=== PATIENT | male | born 1945 | race Hispanic/Latino ===

== ENCOUNTER 2018-08-23 08:10 | Observation (INO) | payer OTHER ==
[~2018-08-23] VITALS: Ht 157.5 cm; Wt 61.9 kg
[~2018-08-23 08:10] MED LIST: ASPI-555 PO; FISH1CAP27 PO; FISH1CAP63 PO; METF-444 PO; MULT-1259 PO; PRAV40TA3 PO
[2018-08-23 08:36] LABS: BASOPHILS % (AUTO) 0.6 % (0.0-5.0); EOSINOPHILS % (AUTO) 0.1 % (0.0-8.0); HEMATOCRIT 26.8 % (42-54); LYMPHOCYTES % (AUTO) 35.3 % (21.0-51.0); MEAN CORPUSCULAR HEMOGLOBIN 30.7 pg (27.0-33.0); MEAN CORPUSCULAR HGB CONC 33.7 g/dL (32.0-36.0); MEAN CORPUSCULAR VOLUME 91.3 fL (79-99); MONOCYTES % (AUTO) 18.3 % (3.0-13.0); NEUTROPHILS % (AUTO) 45.7 % (40.0-77.0); NUCLEATED RED BLOOD CELLS 0.1 % (0.0-0.19); PLATELET COUNT (AUTO) 62 K/uL (130-400); RED BLOOD CELL COUNT(AUTO) 2.94 MIL/uL (4.50-6.20); RED CELL DISTRIBUTION WIDTH 16.6 % (11.0-15.5); WHITE BLOOD COUNT (AUTO) 3.6 K/uL (4.8-10.8)
[2018-08-23 08:43] LABS: CREATININE 1.5 mg/dL (0.5-1.5); POTASSIUM 4.5 mmol/L (3.5-5.1)
[2018-08-23 08:49] LABS: ALBUMIN 2.7 g/dL (3.5-5.0); BILIRUBIN,TOTAL 0.5 mg/dL (0.2-1.0); TOTAL PROTEIN, SERUM 8.1 g/dL (6.0-8.3)
[2018-08-23] MEDS ORDERED: ONDANSETRON HCL 4 MG/2 ML VIAL ONE (10:18)
[2018-08-23] MEDS ORDERED: MORPHINE SULFATE 4 MG/1ML SYG ONE (10:19)
[2018-08-23 10:30] LABS: RAPID GROUP A STREP NEGATIVE (NEGATIVE)
[2018-08-23] MEDS ORDERED: SODIUM CHLORIDE 0.9% 500ML 500 ML IV ONE (11:37)
[2018-08-23] MEDS ORDERED: GLUCAGON 1MG KIT 1 MG ML IM PRN (12:30)
[2018-08-23] MEDS ORDERED: DEXTROSE 50%-WATER 50 ML DISP.SYRIN IV PRN (12:30)
[2018-08-23 16:45] VITALS: BP 176/72
[2018-08-23 19:20] VITALS: BP 149/62
[2018-08-23] MEDS: DEXTROSE 5 %-0.45 % NACL 1,000 ML IV SCH ×2 (19:30→20:30)
[2018-08-23] MEDS ORDERED: LISI2.5T2 PO (19:34)
[2018-08-23] MEDS ORDERED: ONDA4TAB10 PO (19:34)
[2018-08-23] MEDS ORDERED: METF500S7 PO (19:34)
[2018-08-23] MEDS: INSULIN R PO SS1 SQ SCH ×2 (20:28→21:00)
[2018-08-23 23:20] VITALS: BP 146/68
[2018-08-24] MEDS: DEXTROSE 5 %-0.45 % NACL 1,000 ML IV SCH (03:41)
[2018-08-24 04:00] VITALS: BP 135/57
[2018-08-24 05:13] LABS: BASOPHILS % (AUTO) 0.3 % (0.0-5.0); EOSINOPHILS % (AUTO) 0.2 % (0.0-8.0); HEMATOCRIT 22.7 % (42-54); LYMPHOCYTES % (AUTO) 40.5 % (21.0-51.0); MEAN CORPUSCULAR HEMOGLOBIN 29.9 pg (27.0-33.0); MEAN CORPUSCULAR VOLUME 90.5 fL (79-99); MONOCYTES % (AUTO) 18.4 % (3.0-13.0); NEUTROPHILS % (AUTO) 40.6 % (40.0-77.0); NUCLEATED RED BLOOD CELLS 0.3 % (0.0-0.19); PLATELET COUNT (AUTO) 44 K/uL (130-400); RED CELL DISTRIBUTION WIDTH 16.6 % (11.0-15.5)
[2018-08-24 05:27] LABS: ALBUMIN 2.2 g/dL (3.5-5.0); BILIRUBIN,TOTAL 0.4 mg/dL (0.2-1.0); CREATININE 1.5 mg/dL (0.5-1.5); POTASSIUM 5.4 mmol/L (3.5-5.1); TOTAL PROTEIN, SERUM 6.8 g/dL (6.0-8.3)
[2018-08-24] MEDS: INSULIN R PO SS1 SQ SCH ×4 (06:30→21:00)
[2018-08-24 08:00] VITALS: BP 136/64
[2018-08-24 10:16] LABS: HEMATOCRIT 21.9 % (42-54); MEAN CORPUSCULAR HEMOGLOBIN 29.9 pg (27.0-33.0); MEAN CORPUSCULAR HGB CONC 32.8 g/dL (32.0-36.0); MEAN CORPUSCULAR VOLUME 91.1 fL (79-99); NUCLEATED RED BLOOD CELLS 0.1 % (0.0-0.19); PLATELET COUNT (AUTO) 40 K/uL (130-400); RED CELL DISTRIBUTION WIDTH 16.7 % (11.0-15.5); WHITE BLOOD COUNT (AUTO) 2.5 K/uL (4.8-10.8)
[2018-08-24] MEDS: FAMOTIDINE/PF 20 MG/2 ML VIAL IV SCH (11:04)
[2018-08-24 11:11] LABS: LYMPHOCYTES % (MANUAL) 42 % (22-44); MAN.DIFF COMMENT-IMPRESSION MANUAL DIFFERENTIAL; MONOCYTES % (MANUAL) 17 % (2-9); SEGMENTED NEUTROPHILS % 41 % (40-70)
[2018-08-24 12:00] VITALS: BP 145/67
[2018-08-24 16:00] VITALS: BP 153/65
[2018-08-24] MEDS ORDERED: GUAIFENESIN-DM 200/20 MG 10 ML PO PRN (18:00)
[2018-08-24 19:28] VITALS: BP 162/71
[2018-08-24] MEDS: ONDANSETRON ODT 4 MG TAB PO SCH (19:30)
[2018-08-24] MEDS ORDERED: ATORVASTATIN CALCIUM 10 MG TABLET PO SCH (21:00)
[2018-08-24] MEDS: FISH OIL 1000 MG/CAP PO SCH (21:22)
[2018-08-25 00:18] VITALS: BP 145/71
[2018-08-25] MEDS: ONDANSETRON ODT 4 MG TAB PO SCH ×4 (03:30→08:58)
[2018-08-25 04:24] LABS: HEMATOCRIT 22.3 % (42-54); MEAN CORPUSCULAR HEMOGLOBIN 30.5 pg (27.0-33.0); MEAN CORPUSCULAR HGB CONC 33.7 g/dL (32.0-36.0); MEAN CORPUSCULAR VOLUME 90.4 fL (79-99); NUCLEATED RED BLOOD CELLS 0.1 % (0.0-0.19); PLATELET COUNT (AUTO) 40 K/uL (130-400); RED BLOOD CELL COUNT(AUTO) 2.46 MIL/uL (4.50-6.20); RED CELL DISTRIBUTION WIDTH 16.6 % (11.0-15.5)
[2018-08-25 04:30] VITALS: BP 146/67
[2018-08-25 04:37] LABS: CREATININE 1.3 mg/dL (0.5-1.5); POTASSIUM 4.3 mmol/L (3.5-5.1)
[2018-08-25] MEDS: INSULIN R PO SS1 SQ SCH ×2 (06:21→11:30)
[2018-08-25] MEDS: FISH OIL 1000 MG/CAP PO SCH (07:40)
[2018-08-25 08:00] VITALS: BP 153/67
[2018-08-25] MEDS ORDERED: METFORMIN HCL 500 MG TABLET PO SCH (08:00)
[2018-08-25] MEDS: FAMOTIDINE/PF 20 MG/2 ML VIAL IV SCH (08:59)
[2018-08-25] MEDS ORDERED: FISH OIL 1000 MG/CAP PO SCH (09:00)
[2018-08-25] MEDS ORDERED: ASPIRIN 81MG TAB.CHEW PO SCH (09:00)
[2018-08-25] MEDS ORDERED: LISINOPRIL 2.5 MG TABLET PO SCH (09:00)
[2018-08-25] MEDS ORDERED: MULTIVITAMIN TABLET PO SCH (09:00)
[2018-08-25] MEDS ORDERED: AZITHROMYCIN 250 MG TABLET PO SCH ×2 (09:30→10:00)
[2018-08-25 12:00] VITALS: BP 136/56
[2018-08-25] MEDS ORDERED: IPRATROPIUM/ALBUTEROL SULFATE 3 ML SOLUTION IH SCH (12:00)
[2018-08-26] MEDS ORDERED: AZITHROMYCIN 250 MG TABLET PO SCH (07:30)
[2018-08-28] MEDS ORDERED: OMEG-112 PO (00:26)
[2018-08-28] MEDS ORDERED: LEVO500T89 PO (00:26)
[2018-08-28] MEDS ORDERED: NITR0.4T50 SL (00:26)
[2018-08-28] MEDS ORDERED: CODEINE (00:26)
[2018-08-28] MEDS ORDERED: PANT40TA25 PO (00:26)
[2018-08-28] MEDS ORDERED: MIRT15TA6 PO (00:26)
[2018-08-28] MEDS ORDERED: IPRA0.2S54 IH (00:26)
[2018-08-28] MEDS ORDERED: GUAI120L62 PO (08:59)
== END 2018-08-25 13:15 | disposition home or self-care (01) ==
LOC: EDH 08:10 → EDHIP 12:15 → 4CH 16:36
PROVIDERS: ADMIT Internal Medicine; ATTEND Internal Medicine
DX: E86.0 Dehydration (principal); N17.9 Acute kidney failure, unspecified; R13.13 Dysphagia, pharyngeal phase; I12.9 Hypertensive chronic kidney disease with stage 1 through stage 4 chronic kidney disease, or unspecified chronic kidney disease; N18.9 Chronic kidney disease, unspecified; D64.9 Anemia, unspecified; I25.10 Atherosclerotic heart disease of native coronary artery without angina pectoris; E11.22 Type 2 diabetes mellitus with diabetic chronic kidney disease; E78.5 Hyperlipidemia, unspecified; I48.91 Unspecified atrial fibrillation; Z79.01 Long term (current) use of anticoagulants; Z86.79 Personal history of other diseases of the circulatory system; Z87.891 Personal history of nicotine dependence; Z95.1 Presence of aortocoronary bypass graft
CPT/HCPCS: G8996; G8997; G8998; 36415; 74230; 76770; 80048; 80053; 82270; 82550; 82948; 83880; 84484; 85025; 85027; 85378; 87804; 87880; 92610; 92611; 93005; 93970; 94640; 94664; 96361; 96374; 96376; G0378; J2270; J2405; J3490; J7040; J7042

== ENCOUNTER 2019-01-20 16:08 | Observation (INO) | payer OTHER ==
[~2019-01-20] VITALS: Ht 172.7 cm; Wt 53.9 kg
[~2019-01-20 16:08] MED LIST changes: -ASPI-555 PO; -FISH1CAP27 PO; -FISH1CAP63 PO; +GUAI120L62 PO; +IPRA0.2S54 IH; +LEVO500T89 PO; +LISI2.5T2 PO; -METF-444 PO; +METF500S7 PO; +MIRT15TA6 PO; +NITR0.4T50 SL; +OMEG-112 PO; +PANT40TA25 PO
[2019-01-20] MEDS ORDERED: CALCIUM GLUCONATE 1 GM/10 ML VIAL IV ONE (16:22)
[2019-01-20 16:33] LABS: BASOPHILS % (AUTO) 0.3 % (0.0-5.0); HEMATOCRIT 22.4 % (42-54); LYMPHOCYTES % (AUTO) 31.4 % (21.0-51.0); MEAN CORPUSCULAR HEMOGLOBIN 31.9 pg (27.0-33.0); MEAN CORPUSCULAR HGB CONC 32.9 g/dL (32.0-36.0); MEAN CORPUSCULAR VOLUME 96.8 fL (79-99); MONOCYTES % (AUTO) 11.1 % (3.0-13.0); NEUTROPHILS % (AUTO) 55.2 % (40.0-77.0); PLATELET COUNT (AUTO) 116 K/uL (130-400); RED BLOOD CELL COUNT(AUTO) 2.31 MIL/uL (4.50-6.20); RED CELL DISTRIBUTION WIDTH 14.1 % (11.0-15.5); WHITE BLOOD COUNT (AUTO) 4.5 K/uL (4.8-10.8)
[2019-01-20] MEDS ORDERED: ASPIRIN 325 MG TABLET ONE (16:36)
[2019-01-20 16:47] LABS: INR 1.06 (0.85-1.15); PARTIAL THROMBOPLASTIN TIME 29.7 SEC (26.3-35.5); PROTHROMBIN TIME 11.1 SEC (9.6-11.6)
[2019-01-20 16:52] LABS: ALBUMIN 3.9 g/dL (3.5-5.0); BILIRUBIN,TOTAL 0.2 mg/dL (0.2-1.0); CREATININE 3.4 mg/dL (0.5-1.5); POTASSIUM 5.7 mmol/L (3.5-5.1); TOTAL PROTEIN, SERUM 7.7 g/dL (6.0-8.3)
[2019-01-20] MEDS ORDERED: DEXTROSE 50%-WATER 50 ML DISP.SYRIN IV ONE (17:26)
[2019-01-20] MEDS ORDERED: INSULIN HUMULIN R 100 UNIT/ML 3ML ONE (17:27)
[2019-01-20] MEDS ORDERED: SODIUM POLYSTYRENE SULFONATE 15 GM/60 ML ML ONE ×2 (18:15→23:21)
[2019-01-20] MEDS ORDERED: 1/2 NORMAL SALINE 1,000 ML IV ONE (18:16)
[2019-01-20] MEDS ORDERED: SODIUM POLYSTYRENE SULFONATE 15 GM/60 ML ML PO NR (18:45)
[2019-01-20] MEDS: 1/2 NORMAL SALINE 1,000 ML IV SCH (18:45)
[2019-01-21] MEDS ORDERED: LACTULOSE 20 GM/30 ML UDCUP ONE (01:47)
[2019-01-21] MEDS ORDERED: 1/2 NORMAL SALINE 1,000 ML IV ONE (03:08)
[2019-01-21] MEDS: 1/2 NORMAL SALINE 1,000 ML IV SCH (04:45)
[2019-01-21 05:46] LABS: BASOPHILS % (AUTO) 0.5 % (0.0-5.0); CREATININE 3.5 mg/dL (0.5-1.5); LYMPHOCYTES % (AUTO) 33.2 % (21.0-51.0); MEAN CORPUSCULAR HEMOGLOBIN 33.2 pg (27.0-33.0); MEAN CORPUSCULAR HGB CONC 34.3 g/dL (32.0-36.0); MEAN CORPUSCULAR VOLUME 96.7 fL (79-99); MONOCYTES % (AUTO) 12.2 % (3.0-13.0); NEUTROPHILS % (AUTO) 51.1 % (40.0-77.0); PLATELET COUNT (AUTO) 89 K/uL (130-400); RED BLOOD CELL COUNT(AUTO) 1.84 MIL/uL (4.50-6.20); RED CELL DISTRIBUTION WIDTH 13.8 % (11.0-15.5); WHITE BLOOD COUNT (AUTO) 2.9 K/uL (4.8-10.8)
[2019-01-21 05:49] LABS: HEMATOCRIT 17.8 % (42-54)
[2019-01-21 05:50] LABS: ALBUMIN 3.3 g/dL (3.5-5.0); BILIRUBIN,TOTAL 0.3 mg/dL (0.2-1.0); TOTAL PROTEIN, SERUM 6.6 g/dL (6.0-8.3)
[2019-01-21 06:16] LABS: EOSINOPHILS % (MANUAL) 5 % (1-6); LYMPHOCYTES % (MANUAL) 38 % (22-44); MAN.DIFF COMMENT-IMPRESSION MANUAL DIFFERENTIAL; MONOCYTES % (MANUAL) 10 % (2-9); SEGMENTED NEUTROPHILS % 47 % (40-70)
[2019-01-21 06:18] LABS: PLATELET MORPHOLOGY COMMENT MARKED DECREASE
[2019-01-21 11:55] LABS: APPEARANCE,URINE Clear (CLEAR); BILIRUBIN,URINE Negative (NEGATIVE); COLOR,URINE Yellow (YELLOW); GLUCOSE, URINE (UA) Negative (NEGATIVE); KETONES,URINE Negative (NEGATIVE); LEUKOCYTE ESTERASE ,URINE Negative (NEGATIVE); NITRATE,URINE Negative (NEGATIVE); OCCULT BLOOD,URINE Trace (NEGATIVE); PROTEIN,URINE Negative (NEGATIVE); UROBILINOGEN,URINE 0.2 mg/dL (0.2-1.0)
[2019-01-21 11:58] LABS: CREATININE,URINE RANDOM 49 mg/dL (30-135); PROTEIN,URINE RANDOM 19.4 mg/dL (0-11.9)
[2019-01-21 12:19] LABS: BACTERIA,URINE Rare /HPF (None Seen); RBC,URINE 0-1 /HPF (0-1); SQUAMOUS EPITHELIAL CELL,UR Rare /HPF (0-2); WBC,URINE 0-1 /HPF (0-1)
[2019-01-21] MEDS ORDERED: SODIUM CHLORIDE 0.9% 500ML 500 ML IV ONE (14:36)
[2019-01-21 15:47] VITALS: BP 143/59
[2019-01-21] MEDS ORDERED: RANI-643 PO (17:23)
[2019-01-21] MEDS ORDERED: OLME5TAB PO (17:23)
[2019-01-21 19:16] VITALS: BP 134/59
[2019-01-21 23:49] VITALS: BP 142/67
[2019-01-22 03:32] VITALS: BP 142/65
[2019-01-22 04:05] LABS: HEMATOCRIT 24.1 % (42-54); MEAN CORPUSCULAR HEMOGLOBIN 31.6 pg (27.0-33.0); MEAN CORPUSCULAR VOLUME 93.1 fL (79-99); PLATELET COUNT (AUTO) 106 K/uL (130-400); RED BLOOD CELL COUNT(AUTO) 2.58 MIL/uL (4.50-6.20); RED CELL DISTRIBUTION WIDTH 15.7 % (11.0-15.5); WHITE BLOOD COUNT (AUTO) 5.2 K/uL (4.8-10.8)
[2019-01-22 04:13] LABS: % IRON SATURATION 88.6 % (30-44); EOSINOPHILS % (MANUAL) 8 % (1-6); LYMPHOCYTES % (MANUAL) 20 % (22-44); MAN.DIFF COMMENT-IMPRESSION MANUAL DIFFERENTIAL; MONOCYTES % (MANUAL) 14 % (2-9); PLATELET MORPHOLOGY COMMENT DECREASED; SEGMENTED NEUTROPHILS % 58 % (40-70)
[2019-01-22 04:15] LABS: ALBUMIN 3.2 g/dL (3.5-5.0); BILIRUBIN,TOTAL 0.6 mg/dL (0.2-1.0); PHOSPHORUS 4.5 mg/dL (2.5-4.9); POTASSIUM 4.8 mmol/L (3.5-5.1); TOTAL PROTEIN, SERUM 6.5 g/dL (6.0-8.3)
[2019-01-22 07:00] VITALS: BP_SYST 139; BP_SYST 144; BP_DIAS 70; BP_DIAS 71
--- NOTE | 2019-01-22 07:50 | NUR ---
ASSESSMENT ENCOUNTERED PT A&OX3, AMBULATING IN ROOM, GAIT STEADY AND STRONG WITH STAND BY ASSIST, DOES NOT APPEAR TO BE IN ANY DISTRESS NOR ANY NEURO DEFICITS PRESENT. PT DENIES PAIN, SOB, NAUSEA. CALL LIGHT WITHIN REACH, FAMILY AT BEDSIDE.
[2019-01-22 11:00] VITALS: BP 132/65
[2019-01-22] MEDS ORDERED: SUCR1TAB2 PO (11:23)
[2019-01-22] MEDS ORDERED: LACT10SO9 PO (11:23)
[2019-01-22] MEDS ORDERED: NITROGLYCERIN 0.4 MG SL TAB SL PRN (11:45)
[2019-01-22] MEDS ORDERED: LACTULOSE 20 GM/30 ML UDCUP ONE (11:54)
--- NOTE | 2019-01-22 13:00 | NUR ---
DISCHARGE INSTRUCTIONS GIVEN, PIV REMOVED AND INTACT, DISCHARGED HOME TO FAMILY VEHICLE VIA WHEELCHAIR.
[2019-01-22] MEDS ORDERED: IPRATROPIUM 0.5 MG/2.5 ML INH IH SCH (14:00)
[2019-01-22] MEDS ORDERED: LACTULOSE 20 GM/30 ML UDCUP PO SCH (17:00)
[2019-01-22] MEDS ORDERED: RANITIDINE HCL 15 MG/1 ML PO PRN (21:00)
[2019-01-22] MEDS ORDERED: ATORVASTATIN CALCIUM 10 MG TABLET PO SCH (21:00)
[2019-01-22] MEDS ORDERED: SUCRALFATE 1 GM TABLET PO SCH (21:00)
[2019-01-23] MEDS ORDERED: FISH OIL 1000 MG/CAP PO SCH (09:00)
[2019-01-23] MEDS ORDERED: MULTIVITAMINS/MINERALS/IRO TAB PO SCH (09:00)
[2019-01-23] MEDS ORDERED: LOSARTAN 50 MG TABLET PO SCH (09:00)
[2019-01-23] MEDS ORDERED: PANTOPRAZOLE SODIUM 40 MG TABLET.DR PO SCH (09:00)
== END 2019-01-22 17:50 | disposition home or self-care (01) ==
LOC: EDH 16:08 → EDHIP 17:45 → 2AH 01-21 15:51
PROVIDERS: ADMIT Internal Medicine; ATTEND Internal Medicine
DX: E87.5 Hyperkalemia (principal); D63.1 Anemia in chronic kidney disease; I12.9 Hypertensive chronic kidney disease with stage 1 through stage 4 chronic kidney disease, or unspecified chronic kidney disease; N18.9 Chronic kidney disease, unspecified; N17.9 Acute kidney failure, unspecified; I48.91 Unspecified atrial fibrillation; E11.22 Type 2 diabetes mellitus with diabetic chronic kidney disease; E78.5 Hyperlipidemia, unspecified; I25.10 Atherosclerotic heart disease of native coronary artery without angina pectoris; Z79.01 Long term (current) use of anticoagulants; Z95.1 Presence of aortocoronary bypass graft; Z95.2 Presence of prosthetic heart valve; Z79.899 Other long term (current) drug therapy
CPT/HCPCS: 36415 ×3; 36430; 71045; 76770; 80053 ×3; 81001; 82550; 82570; 82948 ×3; 83540; 83550; 84100; 84132; 84156; 84165; 84484; 85025 ×3; 85610; 85730; 86850; 86900; 86901; 86922; 93005 ×2; 94640; 94664; 99284; G0378 ×48; J0610; J1815; J7040; J7070; P9016

== ENCOUNTER → 2019-04-26 | Outpatient (CLI) | payer OTHER ==
[~2019-04-26] MED LIST changes: -GUAI120L62 PO; +LACT10SO9 PO; -LEVO500T89 PO; -LISI2.5T2 PO; -METF500S7 PO; -MIRT15TA6 PO; +OLME5TAB PO; +RANI-643 PO; +SUCR1TAB2 PO
== END | disposition home or self-care (01) ==
LOC: RAH 08:44
PROVIDERS: ATTEND Internal Medicine Gastroenterology
DX: I86.8 Varicose veins of other specified sites (principal); K74.60 Unspecified cirrhosis of liver; I70.0 Atherosclerosis of aorta; Z90.49 Acquired absence of other specified parts of digestive tract
CPT/HCPCS: 76700; 93975

== ENCOUNTER 2019-11-22 10:24 | Inpatient (IN) | payer OTHER ==
[~2019-11-22] VITALS: Ht 167.6 cm; Wt 63.7 kg
[~2019-11-22 10:24] MED LIST changes: -RANI-643 PO; +RANI-655 PO
[2019-11-22 10:49] LABS: BASOPHILS % (AUTO) 0.1 % (0.0-5.0); MEAN CORPUSCULAR HEMOGLOBIN 29.1 pg (27.0-33.0); MEAN CORPUSCULAR HGB CONC 30.2 g/dL (32.0-36.0); MEAN CORPUSCULAR VOLUME 96.6 fL (79-99); MONOCYTES % (AUTO) 15.2 % (3.0-13.0); NEUTROPHILS % (AUTO) 52.8 % (40.0-77.0); PLATELET COUNT (AUTO) 91 K/uL (130-400); RED BLOOD CELL COUNT(AUTO) 2.06 MIL/uL (4.50-6.20); RED CELL DISTRIBUTION WIDTH 17.6 % (11.0-15.5); WHITE BLOOD COUNT (AUTO) 8.6 K/uL (4.8-10.8)
[2019-11-22] MEDS ORDERED: ACETAMINOPHEN EXTRA STRENGTH 500 MG TABLET ONE (10:57)
[2019-11-22] MEDS ORDERED: ZOSYN 3.375GM+NS 50ML 50 ML IV ONE (10:57)
[2019-11-22] MEDS ORDERED: SODIUM CHLORIDE 0.9% 1000ML 2,000 ML IV ONE (10:58)
[2019-11-22 11:00] LABS: HEMATOCRIT 19.9 % (42-54)
[2019-11-22 11:08] LABS: ABG HCO3 16.1 mmol/L (21.0-28.0); ABG OXYGEN SATURATION 97.9 % (95.0-99.0); ABG PCO2 27 mmHg (35-48)
[2019-11-22 11:36] LABS: INR 1.3 (0.85-1.15); PARTIAL THROMBOPLASTIN TIME 32.9 SEC (26.3-35.5); PROTHROMBIN TIME 13.9 SEC (9.6-11.6)
[2019-11-22] MEDS ORDERED: OSELTAMIVIR PHOSPHATE 75 MG CAP ONE (11:55)
[2019-11-22 12:29] LABS: ALANINE AMINOTRANSFERASE 23 U/L (12-78); ASPARTATE AMINOTRANSFERASE 24 U/L (10-37); BILIRUBIN,TOTAL 0.7 mg/dL (0.2-1.0); CARBON DIOXIDE 18 mmol/L (21-32); CHLORIDE 105 mmol/L (101-111); CREATINE KINASE, TOTAL 18 U/L (21-232); CREATININE 3.7 mg/dL (0.5-1.5); GLOMERULAR FILTR. RATE CALC 17 mL/min (>60); GLUCOSE,RANDOM 179 mg/dL (70-105); MYOGLOBIN 74 ng/mL (10-92); SODIUM SERUM 135 mmol/L (136-145); TOTAL PROTEIN, SERUM 9.3 g/dL (6.0-8.3); TROPONIN I < 0.04 ng/mL (0.00-0.06); UREA NITROGEN, BLOOD 61 mg/dL (7-18)
[2019-11-22 12:31] LABS: POTASSIUM 6.3 mmol/L (3.5-5.1)
[2019-11-22] MEDS ORDERED: CALCIUM GLUCONATE 1 GM/10 ML VIAL IV ONE (13:58)
[2019-11-22] MEDS ORDERED: SODIUM CHLORIDE 0.9% 100 ML IV ONE (13:58)
[2019-11-22] MEDS ORDERED: METHYLPREDNISOLONE SOD SUCC 125MG/2ML VIAL IVP SCH (15:30)
[2019-11-22] MEDS ORDERED: COMPOUND PO MISCELLANEOUS 1 EACH MISC MISC PRN (15:30)
[2019-11-22] MEDS ORDERED: SODIUM CHLORIDE 0.9% 10 ML VIAL IVP PRN (15:45)
[2019-11-22 17:42] VITALS: BP 149/70
[2019-11-22] MEDS ORDERED: IPRATROPIUM/ALBUTEROL SULFATE 3 ML SOLUTION IH ONE (18:34)
[2019-11-22] MEDS ORDERED: FURO20TA4 PO (18:42)
[2019-11-22] MEDS ORDERED: SODI454P10 PO (18:42)
[2019-11-22] MEDS ORDERED: MONT10TA26 PO (18:42)
[2019-11-22] MEDS ORDERED: LACT10SO PO (18:42)
[2019-11-22] MEDS ORDERED: TELM80TA10 PO (18:42)
[2019-11-22] MEDS ORDERED: ISOS30TA6 PO (18:42)
[2019-11-22] MEDS ORDERED: AEC81 PO (18:42)
[2019-11-22 19:45] LABS: BILIRUBIN,URINE Negative (NEGATIVE); COLOR,URINE Yellow (YELLOW); GLUCOSE, URINE (UA) Negative (NEGATIVE); KETONES,URINE Negative (NEGATIVE); LEUKOCYTE ESTERASE ,URINE Negative (NEGATIVE); NITRATE,URINE Negative (NEGATIVE); OCCULT BLOOD,URINE Moderate (NEGATIVE); PROTEIN,URINE POS 2+ mg/dL (NEGATIVE); UROBILINOGEN,URINE 0.2 mg/dL (0.2-1.0)
[2019-11-22 19:46] LABS: APPEARANCE,URINE SLIGHTLY CLOUDY (CLEAR)
[2019-11-22 19:52] LABS: BACTERIA,URINE Few /HPF (None Seen); COARSE GRANULAR CASTS,URINE 0-2 /LPF (None Seen); SQUAMOUS EPITHELIAL CELL,UR Few /HPF (0-2); WBC,URINE 0-1 /HPF (0-1)
[2019-11-22 19:54] LABS: AMORPHOUS SEDIMENT,UR Few /LPF (None Seen)
[2019-11-22 20:10] VITALS: BP 147/58
[2019-11-22 23:31] VITALS: BP 144/73
[2019-11-23 03:42] VITALS: BP 154/65
[2019-11-23 05:40] LABS: MEAN CORPUSCULAR HEMOGLOBIN 28.4 pg (27.0-33.0); MEAN CORPUSCULAR VOLUME 91.7 fL (79-99); PLATELET COUNT (AUTO) 55 K/uL (130-400); RED BLOOD CELL COUNT(AUTO) 2.18 MIL/uL (4.50-6.20)
[2019-11-23 05:58] LABS: ALBUMIN 2.4 g/dL (3.5-5.0); BILIRUBIN,TOTAL 0.5 mg/dL (0.2-1.0); CREATININE 3.3 mg/dL (0.5-1.5); POTASSIUM 5.9 mmol/L (3.5-5.1); TOTAL PROTEIN, SERUM 7.8 g/dL (6.0-8.3)
[2019-11-23] MEDS: IPRATROPIUM/ALBUTEROL SULFATE 3 ML SOLUTION IH PRN ×4 (06:19→19:09)
[2019-11-23 07:30] VITALS: BP 142/69
[2019-11-23] MEDS: CEFTRIAXONE SODIUM 1 GM IVP SCH (08:34)
[2019-11-23] MEDS ORDERED: OSELTAMIVIR PHOSPHATE 300 MG, WATER FOR INJECTION,STERILE 10 ML, COMPOUNDING VEHICLE SF... PO SCH ×3 (09:00)
[2019-11-23 11:00] VITALS: BP 148/62
[2019-11-23] MEDS: OSELTAMIVIR PHOSPHATE 75 MG CAP PO SCH (11:33)
--- NOTE | 2019-11-23 12:58 | NUR ---
DCP CM met with pt discussed dc plans. Pt is independent prior to admission, lives at home with spouse. Pt has a cane. Denies any other equipments/services. Feels safe to go back home, still drives, spouse able to assist with transportation and nees as necessary. DC plan to home once stable. CM to cont to follow up. Addendum: 11/23/19 at 1259 by BONIFACIO MOREAU LVN CM Amended: Links added.
--- NOTE | 2019-11-23 14:04 | NUR ---
[id number] patient signed IM Letter to [id number] and placed in chart under consent tab.
--- NOTE | 2019-11-23 14:43 | NUR ---
RD Notification Pt admitted for Flu B, PNA, Hx of CABG, DM, CKD. Pt tolerating current diet order at this time. Recommend to add Renal Non Dialysis diet order secondary to altered renal labs. Pt with some AMS at time of visit, as per RN. Diet held at time of visit pending U/S of abdomen. RD to follow up with nutrition education assessment. Pt with significant wt loss (>7.5% in 3mos.). Pt with good appetite at this time. RD to continue to monitor. Please notify RD as additional nutrition concerns arise. Thank you. Addendum: 11/23/19 at [address] RD Amended: Links added.
[2019-11-23 20:57] VITALS: BP 148/70
[2019-11-24 00:38] VITALS: BP 147/68
[2019-11-24 04:00] VITALS: BP 142/79
[2019-11-24 06:11] LABS: LYMPHOCYTES % (AUTO) 23.2 % (21.0-51.0); MEAN CORPUSCULAR HEMOGLOBIN 28.4 pg (27.0-33.0); MEAN CORPUSCULAR HGB CONC 31.4 g/dL (32.0-36.0); MEAN CORPUSCULAR VOLUME 90.5 fL (79-99); MONOCYTES % (AUTO) 12.2 % (3.0-13.0); PLATELET COUNT (AUTO) 79 K/uL (130-400); RED BLOOD CELL COUNT(AUTO) 2.43 MIL/uL (4.50-6.20); RED CELL DISTRIBUTION WIDTH 19.9 % (11.0-15.5); WHITE BLOOD COUNT (AUTO) 7.4 K/uL (4.8-10.8)
[2019-11-24 06:29] LABS: ALBUMIN 2.6 g/dL (3.5-5.0); BILIRUBIN,TOTAL 0.5 mg/dL (0.2-1.0); CREATININE 3.3 mg/dL (0.5-1.5); POTASSIUM 5.9 mmol/L (3.5-5.1); TOTAL PROTEIN, SERUM 8.2 g/dL (6.0-8.3)
[2019-11-24] MEDS: IPRATROPIUM/ALBUTEROL SULFATE 3 ML SOLUTION IH PRN ×3 (07:01→18:48)
[2019-11-24 07:30] VITALS: BP 149/78
[2019-11-24] MEDS: CEFTRIAXONE SODIUM 1 GM IVP SCH (08:16)
[2019-11-24 11:00] VITALS: BP 136/59
[2019-11-24] MEDS: OSELTAMIVIR PHOSPHATE 75 MG CAP PO SCH (11:35)
--- NOTE | 2019-11-24 13:53 | NUR ---
DR. STEPHANY HAMMOND IN TO SEE PATIENT. NEW ORDERS RECEIVED AND CARRIED OUT.
[2019-11-24 16:00] VITALS: BP 149/76
[2019-11-24] MEDS ORDERED: SODIUM CHLORIDE 0.9% 250 ML IV ONE (16:41)
[2019-11-24] MEDS ORDERED: CLONIDINE HCL 0.2 MG TABLET PO PRN (19:45)
[2019-11-24] MEDS ORDERED: SODIUM POLYSTYRENE SULFONATE 15 GM/60 ML ML PO SCH (19:45)
[2019-11-24 20:00] VITALS: BP 146/73
--- NOTE | 2019-11-24 20:00 | NUR ---
PHYSICAL ADULT ASSESSMENT DONE AT 2000
[2019-11-24] MEDS: FUROSEMIDE 10 MG/ML 4ML VIAL IV SCH (20:30)
[2019-11-24] MEDS: LACTULOSE 20 GM/30 ML UDCUP PO SCH (20:30)
[2019-11-24] MEDS ORDERED: ONDANSETRON HCL 4 MG/2 ML VIAL ONE (20:51)
[2019-11-24] MEDS ORDERED: ONDANSETRON HCL 4 MG/2 ML VIAL IVP PRN (21:00)
[2019-11-25] VITALS (7 sets, daily range): BP systolic 122–154; BP diastolic 53–79
[2019-11-25 04:51] LABS: LYMPHOCYTES % (AUTO) 26.8 % (21.0-51.0); MEAN CORPUSCULAR HEMOGLOBIN 29.2 pg (27.0-33.0); MEAN CORPUSCULAR VOLUME 91.2 fL (79-99); MONOCYTES % (AUTO) 12.7 % (3.0-13.0); NEUTROPHILS % (AUTO) 59.4 % (40.0-77.0); PLATELET COUNT (AUTO) 75 K/uL (130-400); RED BLOOD CELL COUNT(AUTO) 2.74 MIL/uL (4.50-6.20); RED CELL DISTRIBUTION WIDTH 18.5 % (11.0-15.5); WHITE BLOOD COUNT (AUTO) 5.6 K/uL (4.8-10.8)
[2019-11-25 04:59] LABS: ALANINE AMINOTRANSFERASE 27 U/L (12-78); ALBUMIN 2.4 g/dL (3.5-5.0); ASPARTATE AMINOTRANSFERASE 32 U/L (10-37); BILIRUBIN,TOTAL 0.8 mg/dL (0.2-1.0); CARBON DIOXIDE 23 mmol/L (21-32); CHLORIDE 107 mmol/L (101-111); CREATININE 3.3 mg/dL (0.5-1.5); GLOMERULAR FILTR. RATE CALC 20 mL/min (>60); GLUCOSE,RANDOM 148 mg/dL (70-105); SODIUM SERUM 136 mmol/L (136-145); UREA NITROGEN, BLOOD 62 mg/dL (7-18)
[2019-11-25 05:33] LABS: AMMONIA < 10 umol/L (11-32)
[2019-11-25] MEDS: ISOSORBIDE MONO 30MG TAB SR PO SCH (08:02)
[2019-11-25] MEDS: FUROSEMIDE 10 MG/ML 4ML VIAL IV SCH ×2 (08:02→21:32)
[2019-11-25] MEDS: CEFTRIAXONE SODIUM 1 GM IVP SCH (08:02)
[2019-11-25] MEDS: LACTULOSE 20 GM/30 ML UDCUP PO SCH ×3 (08:09→21:31)
[2019-11-25] MEDS ORDERED: ASPIRIN 81 MG EC TAB PO SCH (09:00)
[2019-11-25] MEDS: OSELTAMIVIR PHOSPHATE 75 MG CAP PO SCH (11:37)
--- NOTE | 2019-11-25 13:00 | NUR ---
cm note discussed oxygen need with dr kam and states pt should not need home o2, will continue to ,monitor pt, on room air, he is improving, will reorder home o2 eval if needed. Thuan primary nurse aware.
[2019-11-26 04:00] VITALS: BP 122/57
[2019-11-26 08:00] VITALS: BP 134/65
[2019-11-26] MEDS: CEFTRIAXONE SODIUM 1 GM IVP SCH (08:30)
[2019-11-26] MEDS: LACTULOSE 20 GM/30 ML UDCUP PO SCH ×2 (08:31→14:48)
[2019-11-26] MEDS: ISOSORBIDE MONO 30MG TAB SR PO SCH (08:31)
[2019-11-26] MEDS: FUROSEMIDE 10 MG/ML 4ML VIAL IV SCH (08:31)
[2019-11-26 11:49] VITALS: BP 124/54
[2019-11-26] MEDS: OSELTAMIVIR PHOSPHATE 75 MG CAP PO SCH (11:56)
[2019-11-26 16:00] VITALS: BP 114/50
[2019-11-26] MEDS ORDERED: OSEL75 PO (16:21)
[2019-11-26] MEDS ORDERED: FURO40TA7 PO (16:22)
[2019-11-26] MEDS ORDERED: POTA20TA12 PO (16:23)
--- NOTE | 2019-11-26 17:00 | NUR ---
patient given discharge instructions , iv removed and site dressed, , patient dressed and daughter called as requested , report given to daughter and she is on her way to pick him up. patient denies pain at this time
--- NOTE | 2019-11-26 17:30 | NUR ---
Patient taking to [facility] via wheelchair Reviewed medication, discharge instructions and follow-up appointment with Dr Parsons patient and daughter, verbalized understand of medication Rx given , no questions or concern at this time , patient left with family for [place]
== END 2019-11-26 17:30 | disposition home or self-care (01) | DRG 194 ==
LOC: EDH 10:24 → OBSVTOIN 14:56 → EDHIP 14:56 → 4DH 16:58
PROVIDERS: ADMIT Family Medicine; ATTEND Family Medicine
DX: J10.01 Influenza due to other identified influenza virus with the same other identified influenza virus pneumonia (principal); D61.818 Other pancytopenia; E11.22 Type 2 diabetes mellitus with diabetic chronic kidney disease; I25.10 Atherosclerotic heart disease of native coronary artery without angina pectoris; K74.60 Unspecified cirrhosis of liver; I48.91 Unspecified atrial fibrillation; Z95.2 Presence of prosthetic heart valve; I50.9 Heart failure, unspecified
CPT/HCPCS: 36415; 36600; 71045; 71250; 76700; 80053; 81001; 82140; 82550; 82803; 82948; 83605; 83874; 84145; 84484; 85025; 85027; 85610; 85730; 86850; 86900; 86901; 86922; 87040; 87088; 87486; 87581; 87633; 87798; 87804; 87807; 93005; 93306; 93356; 93880; 94640; 94664; 99291; G0378; J0610; J0696; J1940; J2405; J2543; J2930; J7030; P9016

== ENCOUNTER 2019-12-03 20:47 | Inpatient (IN) | payer OTHER ==
[~2019-12-03] VITALS: Ht 170.2 cm; Wt 56.4 kg
[~2019-12-03 20:47] MED LIST changes: +AEC81 PO; +FURO40TA7 PO; -IPRA0.2S54 IH; +ISOS30TA6 PO; +LACT10SO PO; -LACT10SO9 PO; +MONT10TA26 PO; -NITR0.4T50 SL; -OLME5TAB PO; +OSEL75 PO; -PANT40TA25 PO; +POTA20TA12 PO; -PRAV40TA3 PO; -RANI-655 PO; +SODI454P10 PO; -SUCR1TAB2 PO; +TELM80TA10 PO
[2019-12-03 21:29] LABS: BASOPHILS % (AUTO) 0.2 % (0.0-5.0); HEMATOCRIT 24.5 % (42-54); LYMPHOCYTES % (AUTO) 33.1 % (21.0-51.0); MEAN CORPUSCULAR HEMOGLOBIN 28.6 pg (27.0-33.0); MEAN CORPUSCULAR HGB CONC 30.2 g/dL (32.0-36.0); MEAN CORPUSCULAR VOLUME 94.6 fL (79-99); MONOCYTES % (AUTO) 15.2 % (3.0-13.0); NEUTROPHILS % (AUTO) 51.3 % (40.0-77.0); PLATELET COUNT (AUTO) 75 K/uL (130-400); RED BLOOD CELL COUNT(AUTO) 2.59 MIL/uL (4.50-6.20); RED CELL DISTRIBUTION WIDTH 17.1 % (11.0-15.5); WHITE BLOOD COUNT (AUTO) 4.5 K/uL (4.8-10.8)
[2019-12-03] MEDS ORDERED: IPRATROPIUM/ALBUTEROL SULFATE 3 ML SOLUTION IH ONE (22:01)
[2019-12-03] MEDS ORDERED: ALBUTEROL SULFATE 0.083% 2.5 MG/3 ML INH IH ONE (22:02)
[2019-12-03 22:12] LABS: INR 1.15 (0.85-1.15); PARTIAL THROMBOPLASTIN TIME 33.8 SEC (26.3-35.5); PROTHROMBIN TIME 12.4 SEC (9.6-11.6)
[2019-12-03] MEDS ORDERED: CALCIUM GLUCONATE 1 GM/10 ML VIAL IV ONE (22:12)
[2019-12-03] MEDS ORDERED: SODIUM POLYSTYRENE SULFONATE 15 GM/60 ML ML ONE (22:12)
[2019-12-03] MEDS ORDERED: SODIUM BICARB 50MEQ 50ML VIAL ONE ×2 (22:12→23:10)
[2019-12-03] MEDS ORDERED: DEXTROSE 50%-WATER 50 ML DISP.SYRIN IV ONE (22:13)
[2019-12-03] MEDS ORDERED: INSULIN HUMULIN R 100 UNIT/ML 3ML ONE (22:14)
[2019-12-03] MEDS ORDERED: SODIUM CHLORIDE 0.9% 50 ML IV ONE (22:15)
[2019-12-03 22:22] LABS: ALBUMIN 2.8 g/dL (3.5-5.0); BILIRUBIN,TOTAL 0.5 mg/dL (0.2-1.0); CREATININE 3.4 mg/dL (0.5-1.5); TOTAL PROTEIN, SERUM 9.4 g/dL (6.0-8.3)
[2019-12-03 22:26] LABS: POTASSIUM 8.7 mmol/L (3.5-5.1)
[2019-12-03] MEDS ORDERED: SODIUM CHLORIDE 0.9% 100 ML IV ONE (23:04)
[2019-12-03] MEDS ORDERED: DILTIAZEM HCL 125 MG/25 ML VIAL IV ONE (23:04)
[2019-12-03] MEDS ORDERED: FUROSEMIDE 10 MG/ML 4ML VIAL ONE ×2 (23:09→23:41)
[2019-12-04] VITALS (22 sets, daily range): BP systolic 112–167; BP diastolic 35–72
[2019-12-04 00:52] LABS: APPEARANCE,URINE Clear (CLEAR); BILIRUBIN,URINE Negative (NEGATIVE); COLOR,URINE Yellow (YELLOW); GLUCOSE, URINE (UA) Negative (NEGATIVE); KETONES,URINE Negative (NEGATIVE); LEUKOCYTE ESTERASE ,URINE Negative (NEGATIVE); NITRATE,URINE Negative (NEGATIVE); OCCULT BLOOD,URINE Moderate (NEGATIVE); PH,URINE 5.5 (5.0-8.0); PROTEIN,URINE Trace mg/dL (NEGATIVE); UROBILINOGEN,URINE 0.2 mg/dL (0.2-1.0)
[2019-12-04 01:07] LABS: BACTERIA,URINE Rare /HPF (None Seen); WBC,URINE 0-1 /HPF (0-1)
[2019-12-04] MEDS ORDERED: ALBUTEROL SULFATE 0.083% 2.5 MG/3 ML INH IH ONE ×2 (01:45→01:46)
--- NOTE | 2019-12-04 01:58 | NUR ---
Patient admitted in at 0158, Room air, on cardizem drip and NS running in left arm.
[2019-12-04] MEDS ORDERED: ONDANSETRON HCL 4 MG/2 ML VIAL IVP PRN (02:45)
[2019-12-04] MEDS ORDERED: ACETAMINOPHEN 325 MG TAB PO PRN ×2 (02:45→15:45)
[2019-12-04] MEDS: SODIUM CHLORIDE 0.9% 1000ML 1,000 ML IV SCH ×21 (03:30→23:40)
[2019-12-04] MEDS ORDERED: DILTIAZEM HCL 125 MG/25 ML 125 MG in SODIUM CHLORIDE 0.9% 100 ML IV SCH (03:30)
[2019-12-04 04:06] LABS: CREATININE 3.4 mg/dL (0.5-1.5)
[2019-12-04 04:23] LABS: POTASSIUM 8.3 mmol/L (3.5-5.1)
[2019-12-04] MEDS: SODIUM POLYSTYRENE SULFONATE 15 GM/60 ML ML PO SCH (04:30)
[2019-12-04] MEDS ORDERED: SODIUM POLYSTYRENE SULFONATE 15 GM/60 ML ML ONE (04:31)
[2019-12-04] MEDS ORDERED: DEXTROSE 50%-WATER 25 GM/50 ML VIAL IV STA (05:04)
[2019-12-04] MEDS ORDERED: CALCIUM GLUCONATE 1 GM/10 ML VIAL IV STA (05:04)
[2019-12-04] MEDS ORDERED: INSULIN HUMULIN R 100 UNIT/ML 3ML SQ STA (05:04)
[2019-12-04] MEDS ORDERED: SODIUM BICARB 50MEQ 50ML VIAL IV STA (05:04)
[2019-12-04] MEDS ORDERED: ALBUTEROL SULFATE 0.083% 2.5 MG/3 ML INH IH STA (05:09)
[2019-12-04] MEDS ORDERED: FUROSEMIDE 10 MG/ML 4ML VIAL IV STA (05:09)
[2019-12-04] MEDS: ALBUTEROL SULFATE 0.083% 2.5 MG/3 ML INH IH SCH ×2 (05:15→09:23)
[2019-12-04] MEDS ORDERED: SODIUM BICARB 50MEQ 50ML VIAL ONE (05:15)
[2019-12-04] MEDS ORDERED: CALCIUM GLUCONATE 1 GM/10 ML VIAL IV ONE (05:15)
[2019-12-04] MEDS ORDERED: DEXTROSE 50%-WATER 50 ML DISP.SYRIN IV ONE ×2 (05:16→19:38)
[2019-12-04] MEDS ORDERED: FUROSEMIDE 10 MG/ML 4ML VIAL ONE (05:17)
[2019-12-04] MEDS ORDERED: INSULIN HUMULIN R 100 UNIT/ML 3ML ONE (05:17)
[2019-12-04] MEDS ORDERED: DEXTROSE 10%-WATER 1,000 ML IV SCH (05:45)
[2019-12-04] MEDS ORDERED: INSULIN REGULAR, HUMAN 3ML 100 UNIT in SODIUM CHLORIDE 0.9% 99 ML IV PRN ×2 (05:45)
--- NOTE | 2019-12-04 06:00 | NUR ---
Monique Martinez CARDIOLOGY TECHNOLOGIST called at 0500 for elevated Potassium Lab. Hyperkalemia cocktail given for the second time to decrease level. Monique CARDIOLOGY TECHNOLOGIST ordered insulin drip and D10W to lower potassium. CARDIOLOGY TECHNOLOGIST stated a catheter needs to be placed for emergency dialysis for K+ levels.
[2019-12-04] MEDS: SODIUM POLYSTYRENE SULFONATE 15 GM/60 ML ML PO NR (06:29)
[2019-12-04] MEDS: METOCLOPRAMIDE 10 MG/2 ML VIAL IVP SCH ×3 (06:35→18:00)
--- NOTE | 2019-12-04 06:48 | NUR ---
Dr. Marco pandya, awaiting callback for possible dialysis.
--- NOTE | 2019-12-04 07:08 | NUR ---
Dr. Lara returned page and stated patient needs to get acces obtained for stat dialysis, and dialysis start chandrika
--- NOTE | 2019-12-04 07:13 | NUR ---
Reed CONW[facility] called and notified that access was needed for dialysis.
[2019-12-04] MEDS: FUROSEMIDE 10 MG/ML 4ML VIAL IV SCH ×2 (08:18→20:41)
[2019-12-04] MEDS ORDERED: INSULIN HUMULIN R 100 UNIT/ML 3ML IV SCH (09:30)
[2019-12-04] MEDS ORDERED: ALBUTEROL SULFATE 0.083% 2.5 MG/3 ML INH IH SCH (09:30)
[2019-12-04] MEDS ORDERED: DEXTROSE 50%-WATER 50 ML DISP.SYRIN IV SCH (09:30)
[2019-12-04] MEDS ORDERED: SODIUM BICARB 8.4% 50ML SYRING 150 MEQ in DEXTROSE 5%-WATER 850 ML IV SCH (09:30)
[2019-12-04] MEDS ORDERED: SODIUM POLYSTYRENE SULFONATE 15 GM/60 ML ML RC SCH (09:30)
[2019-12-04] MEDS: PANTOPRAZOLE 40 MG/VIAL IVP SCH (10:03)
[2019-12-04] MEDS ORDERED: CALCIUM GLUCONATE 1 GM/10 ML VIAL IV SCH (10:15)
[2019-12-04] MEDS ORDERED: CALCIUM GLUCONATE 1 GM in SODIUM CHLORIDE 0.9% 50 ML IV SCH (10:30)
--- NOTE | 2019-12-04 10:50 | NUR ---
DR. PAINTING HERE AND INSERTING THE TRIDALYSIS CATHETER. CHEST XRAY DONE AFTER CATHETER WAS PLACED.
[2019-12-04] MEDS ORDERED: LIDOCAINE HCL 1% 20 ML VIAL ONE (10:52)
[2019-12-04 11:31] LABS: CREATININE 3.6 mg/dL (0.5-1.5)
[2019-12-04 11:38] LABS: POTASSIUM 6.4 mmol/L (3.5-5.1)
--- NOTE | 2019-12-04 12:30 | NUR ---
DR. YAO HERE AND ORDERS NOTED AND DIALYSIS STAFF NOTIFIED OF DIALYSIS NEEDING TO BE DONE HUSSEIN.
[2019-12-04 12:58] LABS: ABG BASE EXCESS -1.9 mmol/L (-2.0-3.0); ABG HCO3 21.9 mmol/L (21.0-28.0); ABG OXYGEN SATURATION 97.7 % (95.0-99.0); ABG PCO2 35 mmHg (35-48)
--- NOTE | 2019-12-04 14:00 | NUR ---
DIALYSIS TREATMENT STARTED AND WILL MONITOR HOW SHE TOLERATES.
[2019-12-04] MEDS ORDERED: HEPARIN SODIUM 5000UNIT/ML 1ML VIAL ONE (15:04)
[2019-12-04 15:37] LABS: CHLORIDE,URINE RANDOM 139 mmol/L (110-250); CREATININE,URINE RANDOM 18 mg/dL (30-135); POTASSIUM,URINE RANDOM 16 mmol/L (25-125); SODIUM,URINE RANDOM 126 mmol/l (40-220)
[2019-12-04] MEDS ORDERED: SODIUM CHLORIDE 0.9% 1000ML 1,000 ML IV PRN (15:45)
[2019-12-04] MEDS ORDERED: 0.9% SODIUM CHLORIDE 1000 ML IV BAG IV PRN (15:45)
[2019-12-04] MEDS ORDERED: NITROGLYCERIN 0.4 MG SL TAB SL PRN (15:45)
[2019-12-04] MEDS ORDERED: LIDOCAINE HCL-MPF 1% 2ML VIAL IJ PRN (15:45)
[2019-12-04] MEDS ORDERED: HEPARIN SODIUM 5000UNIT/ML 1ML VIAL IJ PRN ×2 (15:45)
[2019-12-04 16:29] LABS: % IRON SATURATION 45.5 % (30-44)
--- NOTE | 2019-12-04 16:40 | NUR ---
INITIAL: Spoke w pts spouse Angela this afternoon to discuss dcp. Per Mrs Stover, pt lives w her. Prior to admission he was independent w ambulation and ADLs. Pt has at home a BSC, cane, rollator and standard walker if needed. Per spouse pt was still driving prior to admission. Per spouse she will be able to assist pt at dc if needed. She mentions that at this time DCP remains for home. CM to continue to follow and wait for Md recommendations. Addendum: 12/04/19 at 1644 by DOMONIQUE LE CM Amended: Links added.
[2019-12-04] MEDS ORDERED: PHARMACY COMMUNICATION MISC SCH (17:00)
[2019-12-04 17:38] LABS: CREATININE 2.2 mg/dL (0.5-1.5); POTASSIUM 4.7 mmol/L (3.5-5.1)
--- NOTE | 2019-12-04 19:00 | NUR ---
Received report patient on insulin drip.
--- NOTE | 2019-12-04 19:30 | NUR ---
Blood sugar checked and it is 58,rechecked blood sugar is 47.D50 IV 1 am was given.Patient remained alert and oriented.
[2019-12-04] MEDS ORDERED: DEXTROSE 50%-WATER 25 GM/50 ML VIAL IV PRN (20:00)
--- NOTE | 2019-12-04 20:22 | NUR ---
SHIP SURVEYOR Monique Martinez was called and notified about patient blood sugar and he is given D50 IV .Received order to stop insulin and D50 prn for Hypoglycemia.Blood sugar rechecked at this time and its 121.
[2019-12-04] MEDS: SODIUM BICARBONATE 650 MG TAB PO SCH (20:41)
[2019-12-04] MEDS ORDERED: DEXTROSE 50%-WATER 50 ML DISP.SYRIN IV PRN (20:45)
[2019-12-05] VITALS (38 sets, daily range): BP systolic 106–159; BP diastolic 52–87
[2019-12-05] MEDS: SODIUM CHLORIDE 0.9% 1000ML 1,000 ML IV SCH ×16 (00:01→12:10)
[2019-12-05] MEDS: METOCLOPRAMIDE 10 MG/2 ML VIAL IVP SCH ×2 (00:07→06:23)
[2019-12-05 03:54] LABS: HEMATOCRIT 22.9 % (42-54); MEAN CORPUSCULAR HEMOGLOBIN 28.6 pg (27.0-33.0); MEAN CORPUSCULAR VOLUME 92.3 fL (79-99); PLATELET COUNT (AUTO) 100 K/uL (130-400); RED BLOOD CELL COUNT(AUTO) 2.48 MIL/uL (4.50-6.20); RED CELL DISTRIBUTION WIDTH 16.7 % (11.0-15.5); WHITE BLOOD COUNT (AUTO) 4.4 K/uL (4.8-10.8)
[2019-12-05 04:09] LABS: CREATININE 2.5 mg/dL (0.5-1.5); POTASSIUM 4.2 mmol/L (3.5-5.1)
[2019-12-05] MEDS: SODIUM POLYSTYRENE SULFONATE 15 GM/60 ML ML PO SCH (04:30)
[2019-12-05 04:32] LABS: LYMPHOCYTES % (MANUAL) 36 % (22-44); MONOCYTES % (MANUAL) 10 % (2-9); SEGMENTED NEUTROPHILS % 54 % (40-70)
[2019-12-05 04:34] LABS: MAN.DIFF COMMENT-IMPRESSION MANUAL DIFFERENTIAL
[2019-12-05] MEDS: SODIUM POLYSTYRENE SULFONATE 15 GM/60 ML ML PO NR (05:46)
[2019-12-05] MEDS ORDERED: COMPOUND PO MISCELLANEOUS 1 EACH MISC MISC PRN (07:15)
[2019-12-05] MEDS: LACTULOSE 20 GM/30 ML UDCUP PO SCH ×3 (08:23→21:14)
[2019-12-05] MEDS: ASPIRIN 81 MG EC TAB PO SCH (08:23)
[2019-12-05] MEDS: SODIUM BICARBONATE 650 MG TAB PO SCH ×2 (08:23→21:14)
[2019-12-05] MEDS: ISOSORBIDE MONO 30MG TAB SR PO SCH (08:24)
[2019-12-05] MEDS: FUROSEMIDE 10 MG/ML 4ML VIAL IV SCH ×2 (08:24→21:14)
[2019-12-05] MEDS: PANTOPRAZOLE 40 MG/VIAL IVP SCH (08:35)
[2019-12-05] MEDS ORDERED: OSELTAMIVIR PHOSPHATE 300 MG, WATER FOR INJECTION,STERILE 10 ML, COMPOUNDING VEHICLE SF... PO SCH ×3 (09:00)
[2019-12-05] MEDS ORDERED: OSELTAMIVIR PHOSPHATE 75 MG CAP PO SCH (09:00)
[2019-12-05] MEDS: HEPARIN SODIUM 5000UNIT/ML 1ML VIAL SQ SCH ×2 (13:52→23:10)
--- NOTE | 2019-12-05 20:59 | NUR ---
Temp 101.9 < 99.0 with cool packs- reported to LUKE Koch for Tylenol , labs in am. continue antiobiotics Addendum: 12/05/19 at 2101 by DERIC LAWRENCE RN RN disregard-wrong patient
--- NOTE | 2019-12-05 22:16 | NUR ---
REPORT GIVEN TO SHALOM HENRY. PATIENT TRANSFERRED TO ROOM 426 VIA WHEELCHAIR.
[2019-12-06 03:30] VITALS: BP 141/68
[2019-12-06 04:44] LABS: HEMATOCRIT 21.4 % (42-54); MEAN CORPUSCULAR HEMOGLOBIN 28.9 pg (27.0-33.0); MEAN CORPUSCULAR HGB CONC 31.8 g/dL (32.0-36.0); MEAN CORPUSCULAR VOLUME 91.1 fL (79-99); PLATELET COUNT (AUTO) 85 K/uL (130-400); RED BLOOD CELL COUNT(AUTO) 2.35 MIL/uL (4.50-6.20); RED CELL DISTRIBUTION WIDTH 16.4 % (11.0-15.5); WHITE BLOOD COUNT (AUTO) 3.6 K/uL (4.8-10.8)
[2019-12-06 04:59] LABS: ALBUMIN 2.3 g/dL (3.5-5.0); BILIRUBIN,TOTAL 0.7 mg/dL (0.2-1.0); CREATININE 2.9 mg/dL (0.5-1.5); PHOSPHORUS 4.4 mg/dL (2.5-4.9); POTASSIUM 4.3 mmol/L (3.5-5.1); TOTAL PROTEIN, SERUM 7.8 g/dL (6.0-8.3)
[2019-12-06 08:02] VITALS: BP 128/67
[2019-12-06 08:05] LABS: HEPATITIS A ANTIBODY IGM Negative (Negative); HEPATITIS B CORE IGM Negative (Negative); HEPATITIS Bs ANTIGEN SCREEN P Negative (Negative)
[2019-12-06] MEDS: LACTULOSE 20 GM/30 ML UDCUP PO SCH ×3 (10:13→20:40)
[2019-12-06] MEDS: PANTOPRAZOLE 40 MG/VIAL IVP SCH (10:13)
[2019-12-06] MEDS: SODIUM BICARBONATE 650 MG TAB PO SCH ×2 (10:13→20:36)
[2019-12-06] MEDS: HEPARIN SODIUM 5000UNIT/ML 1ML VIAL SQ SCH ×2 (10:14→23:30)
--- NOTE | 2019-12-06 10:37 | NUR ---
HD AND LAB TESTS CHART REVIEWED EARLIER BLAISE AND NOTE MADE THAT NO HEP B TOTAL CORE WAS ORDERED. CALLED LAB; ORDERED TEST; THEY WILL SEE IF IT CAN BE ADDED TO BLOOD ALREADY AT [facility], IF NOT, THEN WILL DRAW, PATIENT WITH GHASSAN/MARTIN. AT TIME OF DISCUSSION, PRIMARY RN AND TOOL LIAISON STILL WAITING TO FIND OUT IF HD WILL BE FDC. CM TO DISCUSS W DR. YAO Addendum: 12/06/19 at 1041 by TAMIKA THOMPSON RN CM Amended: Links added.
[2019-12-06 11:43] VITALS: BP 117/59
[2019-12-06] MEDS: ISOSORBIDE MONO 30MG TAB SR PO SCH (12:34)
[2019-12-06] MEDS: FUROSEMIDE 10 MG/ML 4ML VIAL IV SCH ×2 (12:35→20:36)
[2019-12-06] MEDS ORDERED: EPOETIN ALFA 10,000 UNIT/ML VIAL SQ SCH (13:00)
[2019-12-06 16:37] VITALS: BP 104/69
[2019-12-06 20:00] VITALS: BP 136/64
[2019-12-06 23:53] VITALS: BP 132/61
[2019-12-07 04:00] VITALS: BP 135/69
[2019-12-07 06:26] LABS: BASOPHILS % (AUTO) 0.3 % (0.0-5.0); HEMATOCRIT 21.4 % (42-54); LYMPHOCYTES % (AUTO) 42.1 % (21.0-51.0); MEAN CORPUSCULAR HEMOGLOBIN 28.3 pg (27.0-33.0); MEAN CORPUSCULAR HGB CONC 30.8 g/dL (32.0-36.0); MEAN CORPUSCULAR VOLUME 91.8 fL (79-99); MONOCYTES % (AUTO) 16.3 % (3.0-13.0); PLATELET COUNT (AUTO) 88 K/uL (130-400); RED BLOOD CELL COUNT(AUTO) 2.33 MIL/uL (4.50-6.20); RED CELL DISTRIBUTION WIDTH 16.1 % (11.0-15.5); WHITE BLOOD COUNT (AUTO) 3.4 K/uL (4.8-10.8)
[2019-12-07 06:42] LABS: PHOSPHORUS 4.4 mg/dL (2.5-4.9); POTASSIUM 3.5 mmol/L (3.5-5.1)
[2019-12-07] MEDS: HEPARIN SODIUM 5000UNIT/ML 1ML VIAL SQ SCH ×2 (08:45→21:56)
[2019-12-07 08:54] VITALS: BP 136/69
[2019-12-07] MEDS ORDERED: FURO40TA5 PO (09:35)
[2019-12-07] MEDS ORDERED: FOLI1TAB61 PO (09:35)
[2019-12-07] MEDS ORDERED: FUROSEMIDE 20 MG TABLET ONE (11:08)
[2019-12-07] MEDS: LACTULOSE 20 GM/30 ML UDCUP PO SCH ×3 (11:16→21:56)
[2019-12-07] MEDS: ISOSORBIDE MONO 30MG TAB SR PO SCH (11:16)
[2019-12-07] MEDS: SODIUM BICARBONATE 650 MG TAB PO SCH ×2 (11:17→21:56)
[2019-12-07] MEDS: Vitamin B Complex/Vit C/Folic Acid PO SCH (11:17)
[2019-12-07] MEDS: ASPIRIN 81 MG EC TAB PO SCH (11:17)
--- NOTE | 2019-12-07 13:45 | NUR ---
RECEIVED REPORT FROM SHALOM LUND PT [id number]. DENIES ANY PAIN/DISCOMFORT. CONTINUOUS PULSE OX 92%-97% PT W RESP EVEN, UNLABORED WITH O2@3L/NC. PT WITH MILD SOB WHEN OVER TALKS AND HE DE SATS ON CONT OX @87%. AT REST, O2 SAT=97%. HOB ELEVATED 30 DEGREES. BRYANT CATH BAG TO BEDSIDE DRAIN DRAINING YELLOW CLEAR URINE. LAST BOWEL MOVEMENT REPORTS SOFT BM TODAY. WILL CONTINUE TO MONITOR. Addendum: 12/07/19 at 1501 by DILLON SMITH RN WRONG PATIENT.
[2019-12-07 14:27] VITALS: BP 127/57
[2019-12-07] MEDS: FUROSEMIDE 40 MG TABLET PO SCH (15:56)
--- NOTE | 2019-12-07 16:05 | NUR ---
MARTINEZ FROM [facility] CALLED BLOOD READY
[2019-12-07 16:59] VITALS: BP 126/58
[2019-12-07 19:20] VITALS: BP 123/59
[2019-12-07 23:20] VITALS: BP 130/58
[2019-12-08 03:40] VITALS: BP 131/55
[2019-12-08 03:46] LABS: HEMATOCRIT 22.7 % (42-54); LYMPHOCYTES % (AUTO) 43.7 % (21.0-51.0); MEAN CORPUSCULAR HEMOGLOBIN 28.9 pg (27.0-33.0); MEAN CORPUSCULAR HGB CONC 32.6 g/dL (32.0-36.0); MEAN CORPUSCULAR VOLUME 88.7 fL (79-99); MONOCYTES % (AUTO) 14.6 % (3.0-13.0); NEUTROPHILS % (AUTO) 41.2 % (40.0-77.0); PLATELET COUNT (AUTO) 91 K/uL (130-400); RED BLOOD CELL COUNT(AUTO) 2.56 MIL/uL (4.50-6.20); RED CELL DISTRIBUTION WIDTH 15.4 % (11.0-15.5)
[2019-12-08 03:53] LABS: ALBUMIN 2.2 g/dL (3.5-5.0); BILIRUBIN,TOTAL 0.7 mg/dL (0.2-1.0); CREATININE 2.9 mg/dL (0.5-1.5); POTASSIUM 3.5 mmol/L (3.5-5.1); TOTAL PROTEIN, SERUM 7.6 g/dL (6.0-8.3)
--- NOTE | 2019-12-08 06:49 | NUR ---
PATIENT UPDATE Pt kept npo post mn, going for push enteroscopy this am. No complaints of any abdominal pain, no nausea nor vomiting. Pt seen by Dr. Solis last night at 2004.Concerns addressed, pt examined, tender to touch on the left upper quadrant. Get short of breath on exertion, kept on2l per nasal cannula. Pt with sleep apnea, will address pt's need for the cpap for hs tonight. Addendum: 12/08/19 at 0655 by ANDRES ELDER RN RN Amended: Links added. Addendum: 12/08/19 at 0807 by ANDRES ELDER RN RN CHARTED ON THE WRONG PATIENT.
[2019-12-08 07:30] VITALS: BP 121/53
--- NOTE | 2019-12-08 08:07 | NUR ---
PATIENT UPDATE Pt was given 1 unit of prbc , tolerated the blood transfusion well, no untoward reactions . Breath sounds clear, no shortness of breath. Still pending a stool for occult blood, pt hasnt had any bowel movement as of yet.
[2019-12-08] MEDS: Vitamin B Complex/Vit C/Folic Acid PO SCH (08:56)
[2019-12-08] MEDS: SODIUM BICARBONATE 650 MG TAB PO SCH (08:56)
[2019-12-08] MEDS: ISOSORBIDE MONO 30MG TAB SR PO SCH (08:56)
[2019-12-08] MEDS: LACTULOSE 20 GM/30 ML UDCUP PO SCH ×2 (08:56→15:02)
[2019-12-08] MEDS: FUROSEMIDE 40 MG TABLET PO SCH ×2 (08:57→17:24)
[2019-12-08] MEDS ORDERED: PANTOPRAZOLE SODIUM 40 MG TABLET.DR PO SCH (09:00)
[2019-12-08 11:00] VITALS: BP 115/75
[2019-12-08] MEDS: HEPARIN SODIUM 5000UNIT/ML 1ML VIAL SQ SCH (11:17)
--- NOTE | 2019-12-08 12:45 | NUR ---
[id number] patient signed IM Letter, I faxed IM Letter to [id number] and placed in chart under consent tab
[2019-12-08 16:00] VITALS: BP 118/70
--- NOTE | 2019-12-08 18:19 | NUR ---
Per pt's admission database, pt already rec'd flu shot this season. Addendum: 12/08/19 at 1830 by OSCAR GUO RN RN Amended: Links added.
--- NOTE | 2019-12-08 19:55 | NUR ---
DISCHARGED. PATIENT WAS GIVEN DISCHARGE PAPERWORK AT THIS TIME, IV CATHETERS WERE REMOVED CATHETER TIP INTACT HEMOSTASIS ACHIEVED. FAMILY MEMBERS WAITING FOR PATIENT DOWN STAIRS, PATIENT ASSISTED INTO WHEELCHAIR AND OUT OF THE BUILDING.
[2020-01-17] MEDS ORDERED: LACT10SO PO (16:51)
[2020-01-17] MEDS ORDERED: AMLO-257 PO (16:51)
[2020-01-17] MEDS ORDERED: MULT-1289 PO (16:51)
== END 2019-12-08 19:55 | disposition home or self-care (01) | DRG 682 ==
LOC: EDH 20:47 → EDHIP 23:09 → 2BH 12-04 01:16 → 4DH 12-05 22:00
PROVIDERS: ADMIT Family Medicine; ATTEND Family Medicine
PROC: 5A1D70Z Performance of Urinary Filtration, Intermittent, Less than 6 Hours Per Day (ICD-10-PCS; principal; 2019-12-04)
PROC: 02HV33Z Insertion of Infusion Device into Superior Vena Cava, Percutaneous Approach (ICD-10-PCS; 2019-12-04)
PROC: B548ZZA Ultrasonography of Superior Vena Cava, Guidance (ICD-10-PCS; 2019-12-04)
PROC: 30233N1 Transfusion of Nonautologous Red Blood Cells into Peripheral Vein, Percutaneous Approach (ICD-10-PCS; 2019-12-07)
DX: N17.9 Acute kidney failure, unspecified (principal); E43 Unspecified severe protein-calorie malnutrition; I50.33 Acute on chronic diastolic (congestive) heart failure; E87.2 Acidosis; I13.2 Hypertensive heart and chronic kidney disease with heart failure and with stage 5 chronic kidney disease, or end stage renal disease; J98.11 Atelectasis; Z68.1 Body mass index [BMI] 19.9 or less, adult; E87.1 Hypo-osmolality and hyponatremia; D61.818 Other pancytopenia; J45.901 Unspecified asthma with (acute) exacerbation; E87.5 Hyperkalemia; D64.9 Anemia, unspecified; E11.22 Type 2 diabetes mellitus with diabetic chronic kidney disease; E78.5 Hyperlipidemia, unspecified; F01.50 Vascular dementia, unspecified severity, without behavioral disturbance, psychotic disturbance, mood disturbance, and anxiety; I12.9 Hypertensive chronic kidney disease with stage 1 through stage 4 chronic kidney disease, or unspecified chronic kidney disease; N18.6 End stage renal disease; I25.10 Atherosclerotic heart disease of native coronary artery without angina pectoris; I48.0 Paroxysmal atrial fibrillation; K74.60 Unspecified cirrhosis of liver; I08.0 Rheumatic disorders of both mitral and aortic valves; I25.5 Ischemic cardiomyopathy; L50.3 Dermatographic urticaria; E11.51 Type 2 diabetes mellitus with diabetic peripheral angiopathy without gangrene; D50.0 Iron deficiency anemia secondary to blood loss (chronic); I65.22 Occlusion and stenosis of left carotid artery; I86.8 Varicose veins of other specified sites; Z99.2 Dependence on renal dialysis; Z95.5 Presence of coronary angioplasty implant and graft; Z95.3 Presence of xenogenic heart valve; Z95.2 Presence of prosthetic heart valve; Z95.1 Presence of aortocoronary bypass graft; Z90.49 Acquired absence of other specified parts of digestive tract
CPT/HCPCS: 36415; 36430; 36600; 71045; 74176; 80048; 80053; 80074; 81001; 82150; 82436; 82550; 82570; 82728; 82803; 82948; 83540; 83550; 83690; 83735; 83880; 83935; 84100; 84132; 84133; 84300; 84484; 85025; 85027; 85610; 85730; 86704; 86850; 86900; 86901; 86922; 87040; 87804; 90935; 93005; 93308; 93356; 94640; 94664; 99291; C9113; G0378; J0610; J0885; J1644; J1815; J1940; J2765; J3490; J7070; P9016

== ENCOUNTER 2020-01-17 10:26 | Observation (INO) | payer OTHER ==
[~2020-01-17] VITALS: Ht 170.2 cm; Wt 57.2 kg
[~2020-01-17 10:26] MED LIST changes: +FOLI1TAB61 PO; +FURO40TA5 PO; -FURO40TA7 PO; -MULT-1259 PO; -POTA20TA12 PO; -TELM80TA10 PO
[2020-01-17 11:42] LABS: BASOPHILS % (AUTO) 0.2 % (0.0-5.0); EOSINOPHILS % (AUTO) 0.8 % (0.0-8.0); LYMPHOCYTES % (AUTO) 14.2 % (21.0-51.0); MEAN CORPUSCULAR HEMOGLOBIN 30.4 pg (27.0-33.0); MEAN CORPUSCULAR HGB CONC 31.8 g/dL (32.0-36.0); MEAN CORPUSCULAR VOLUME 95.7 fL (79-99); MONOCYTES % (AUTO) 8.8 % (3.0-13.0); NEUTROPHILS % (AUTO) 75.6 % (40.0-77.0); PLATELET COUNT (AUTO) 104 K/uL (130-400); RED CELL DISTRIBUTION WIDTH 16.3 % (11.0-15.5); WHITE BLOOD COUNT (AUTO) 4.9 K/uL (4.8-10.8)
[2020-01-17 11:46] LABS: INR 1.1 (0.85-1.15); PARTIAL THROMBOPLASTIN TIME 31.3 SEC (26.3-35.5); PROTHROMBIN TIME 11.8 SEC (9.6-11.6)
[2020-01-17 11:47] LABS: CREATININE 3.2 mg/dL (0.5-1.5); POTASSIUM 5.2 mmol/L (3.5-5.1)
[2020-01-17 11:50] LABS: ALBUMIN 3.5 g/dL (3.5-5.0); BILIRUBIN,DIRECT 0.2 mg/dL (0.0-0.3); BILIRUBIN,TOTAL 0.4 mg/dL (0.2-1.0); TOTAL PROTEIN, SERUM 9.5 g/dL (6.0-8.3)
[2020-01-17] MEDS ORDERED: SODIUM CHLORIDE 0.9% 10 ML VIAL IVP PRN (14:30)
[2020-01-17] MEDS ORDERED: ONDANSETRON 4 MG TABLET PO PRN ×2 (14:30→16:15)
[2020-01-17 16:34] VITALS: BP 128/98
[2020-01-17] MEDS ORDERED: LACT10SO PO ×2 (16:51)
[2020-01-17] MEDS ORDERED: MULT-1289 PO ×2 (16:51)
[2020-01-17] MEDS ORDERED: AMLO-257 PO ×2 (16:51)
[2020-01-17 17:29] LABS: HEMATOCRIT 20.8 % (42-54)
[2020-01-17 20:00] VITALS: BP 132/49
[2020-01-17] MEDS: LACTULOSE 20 GM/30 ML UDCUP PO SCH (20:11)
[2020-01-17 21:05] LABS: HEMATOCRIT 20.1 % (42-54)
[2020-01-17] MEDS ORDERED: SODIUM CHLORIDE 0.9% 250 ML IV ONE (21:58)
[2020-01-17 23:48] VITALS: BP 140/56
[2020-01-18] MEDS ORDERED: FUROSEMIDE 10 MG/ML 4ML VIAL IV SCH (01:00)
[2020-01-18] MEDS ORDERED: FUROSEMIDE 10 MG/ML 4ML VIAL ONE (03:33)
[2020-01-18 03:50] VITALS: BP 148/56
[2020-01-18 05:22] LABS: MEAN CORPUSCULAR HEMOGLOBIN 30.7 pg (27.0-33.0); MEAN CORPUSCULAR VOLUME 93.1 fL (79-99); PLATELET COUNT (AUTO) 106 K/uL (130-400); RED CELL DISTRIBUTION WIDTH 15.5 % (11.0-15.5); WHITE BLOOD COUNT (AUTO) 7.1 K/uL (4.8-10.8)
[2020-01-18 05:52] LABS: ALBUMIN 3.1 g/dL (3.5-5.0); CREATININE 2.9 mg/dL (0.5-1.5); POTASSIUM 5.4 mmol/L (3.5-5.1); TOTAL PROTEIN, SERUM 8.7 g/dL (6.0-8.3)
[2020-01-18] MEDS ORDERED: PANTOPRAZOLE SODIUM 40 MG TABLET.DR PO SCH (07:30)
[2020-01-18 08:46] VITALS: BP 143/79
[2020-01-18 09:07] LABS: LYMPHOCYTES % (MANUAL) 15 % (22-44); MAN.DIFF COMMENT-IMPRESSION MANUAL DIFFERENTIAL; MONOCYTES % (MANUAL) 8 % (2-9); PLATELET MORPHOLOGY COMMENT SLIGHTLY DECREASED; SEGMENTED NEUTROPHILS % 77 % (40-70)
[2020-01-18] MEDS: LACTULOSE 20 GM/30 ML UDCUP PO SCH (10:00)
[2020-01-18 11:31] VITALS: BP 96/79
[2020-01-18 12:13] LABS: HEMATOCRIT 30.3 % (42-54)
--- NOTE | 2020-01-18 13:48 | NUR ---
[facility] CM spoke to pt's spouse Angela Stover discussed dc plans. Pt is independent prior to admission, lives at home with spouse. Pt has a bedside commode, cane, rollator walker, standard walker. Denies any other equipments/services. Feels safe to go back home, spouse verbalized she is able to assist with transportation and needs as necessary, one of her daughter also available to assist with transportation as needed. DC plan to home once stable. CM to cont to follow up. Addendum: 01/18/20 at 1350 by BONIFACIO MOREAU LVN CM Amended: Links added.
--- NOTE | 2020-01-18 13:59 | NUR ---
RD NOTIFICATION Pt admitted with symptomatic anemia and constipation. Clear Liquid diet order in place. Pt with low BMI for age (19.7). LBM 01/18/20, normal. Recommend Ensure Clear with meals Recommend monitor serum potassium levels RD to continue to monitor. Please notify as additional nutrition concerns arise. Thank you. Addendum: 01/18/20 at [address] RD Amended: Links added.
[2020-01-18 16:35] LABS: HEMATOCRIT 29.3 % (42-54)
[2020-01-18 16:48] VITALS: BP 145/53
--- NOTE | 2020-01-18 19:50 | NUR ---
PER MD HARDY PT, ORDERS IN CHART. APPOINTMENTS MADE WITH DR ANAYA AND DR HAMMOND. PT TEACHING DONE ON THE IMPORTANCE OF TAKING LACTULOSE PRESCRIBED AND TO FOLLOW UP WITH THE DOCTORS ADVISED. PT STATED UNDERSTANDING. NO NEW MEDICATIONS ADDED. IV REMOVED, TIP INTACT. PT DENIES ANY PAIN.
== END 2020-01-18 20:00 | disposition home or self-care (01) ==
LOC: EDH 10:26 → OBSVTOIN 13:42 → EDHIP 13:42 → INTOOBSV 13:42 → 3DH 16:06
PROVIDERS: ADMIT Family Medicine; ATTEND Family Medicine
DX: K59.00 Constipation, unspecified (principal); D64.9 Anemia, unspecified; R11.2 Nausea with vomiting, unspecified
CPT/HCPCS: 36415 ×2; 36430; 71045; 74176; 80048; 80053; 80076; 82270; 82550; 82948 ×4; 83690; 84484; 85014 ×4; 85018 ×4; 85025 ×2; 85610; 85730; 86850; 86900; 86901; 86922; 93005; 96374; 99285; G0378 ×31; J1940; J7050; P9016 ×2

== ENCOUNTER → 2020-02-17 | Outpatient (CLI) | payer OTHER ==
[~2020-02-17] MED LIST changes: +AMLO5TAB9 PO; -FOLI1TAB61 PO; +MULT-1289 PO; -OSEL75 PO; -SODI454P10 PO
== END | disposition home or self-care (01) ==
LOC: OIH 10:49
PROVIDERS: ATTEND Physician Assistant Medical
DX: M47.814 Spondylosis without myelopathy or radiculopathy, thoracic region (principal); I70.0 Atherosclerosis of aorta
CPT/HCPCS: 71046

== ENCOUNTER → 2020-03-23 | Outpatient (CLI) | payer OTHER | END | disposition home or self-care (01) | LOC: SHCH 09:38 | PROVIDERS: ATTEND Internal Medicine Cardiovascular Disease | DX: I08.3 Combined rheumatic disorders of mitral, aortic and tricuspid valves (principal); Z95.2 Presence of prosthetic heart valve | CPT/HCPCS: 93306; 93356 ==

== ENCOUNTER → 2020-11-30 | Outpatient (CLI) | payer OTHER ==
[~2020-11-30] MED LIST changes: +AMLO-257 PO; -AMLO5TAB9 PO; -ISOS30TA6 PO; +ISOS30TA92 PO; -LACT10SO PO; +LACT10SO5 PO; -MONT10TA26 PO; +MONT10TA32 PO
== END | disposition home or self-care (01) ==
LOC: RAH 08:43
PROVIDERS: ATTEND Internal Medicine Cardiovascular Disease
DX: I35.1 Nonrheumatic aortic (valve) insufficiency (principal); I50.9 Heart failure, unspecified; Z95.2 Presence of prosthetic heart valve
CPT/HCPCS: 36415; 87040; 93306; 93356

== ENCOUNTER 2020-12-12 07:41 | Day surgery (SDC) | payer OTHER ==
[2020-12-10 11:21] LABS: BASOPHILS % (AUTO) 0.3 % (0.0-5.0); EOSINOPHILS % (AUTO) 1.1 % (0.0-8.0); HEMATOCRIT 25.7 % (42-54); LYMPHOCYTES % (AUTO) 16.8 % (21.0-51.0); MEAN CORPUSCULAR HEMOGLOBIN 30.2 pg (27.0-33.0); MEAN CORPUSCULAR HGB CONC 31.1 g/dL (32.0-36.0); MONOCYTES % (AUTO) 10.1 % (3.0-13.0); NEUTROPHILS % (AUTO) 70.9 % (40.0-77.0); PLATELET COUNT (AUTO) 153 K/uL (130-400); RED BLOOD CELL COUNT(AUTO) 2.65 MIL/uL (4.50-6.20); RED CELL DISTRIBUTION WIDTH 15.3 % (11.0-15.5); WHITE BLOOD COUNT (AUTO) 7.5 K/uL (4.8-10.8)
[2020-12-10 11:22] LABS: APPEARANCE,URINE Clear (CLEAR); BILIRUBIN,URINE Negative (NEGATIVE); COLOR,URINE Yellow (YELLOW); GLUCOSE, URINE (UA) Negative (NEGATIVE); KETONES,URINE Negative (NEGATIVE); LEUKOCYTE ESTERASE ,URINE Negative (NEGATIVE); NITRATE,URINE Negative (NEGATIVE); OCCULT BLOOD,URINE Negative (NEGATIVE); PROTEIN,URINE Negative (NEGATIVE); UROBILINOGEN,URINE 0.2 mg/dL (0.2-1.0)
[2020-12-10 11:35] LABS: CREATININE 2.8 mg/dL (0.5-1.5); POTASSIUM 4.5 mmol/L (3.5-5.1)
[2020-12-10 11:49] LABS: INR 1.13 (0.85-1.15); PROTHROMBIN TIME 12.2 SEC (9.6-11.6)
[2020-12-10 11:50] LABS: PARTIAL THROMBOPLASTIN TIME 29.9 SEC (26.3-35.5)
[~2020-12-12] VITALS: Ht 172.7 cm; Wt 57.1 kg
[2020-12-12] VITALS (21 sets, daily range): BP systolic 105–154; BP diastolic 40–72
[~2020-12-12 07:41] MED LIST changes: -AEC81 PO; +MONT-39 PO; -MONT10TA32 PO
[2020-12-12] MEDS ORDERED: 0.9%NACL 1000ML 1,000 ML IV ONE (09:08)
[2020-12-12] MEDS ORDERED: MIDAZOLAM HCL 1 MG/ML 2ML VIAL ONE ×3 (09:57→12:30)
[2020-12-12] MEDS ORDERED: FENTANYL CITRATE PF 50 MCG/1 ML 2ML VIAL ONE ×2 (09:57→12:30)
[2020-12-12] MEDS ORDERED: LIDOCAINE HCL 2% VISCOUS 15 ML UDCUP PO SCH (10:00)
[2020-12-12] MEDS ORDERED: BIVALIRUDIN 250 MG/VIAL IV ONE (12:29)
[2020-12-12] MEDS ORDERED: HEPARIN 10,000 UNIT/10ML (1,000 UNIT/ML) VIAL ONE (12:29)
[2020-12-12] MEDS ORDERED: NITROGLYCERIN 2 MG VIAL IV ONE (12:30)
[2020-12-12] MEDS ORDERED: LIDOCAINE HCL 400MG/20ML VIAL ONE (12:30)
[2020-12-12] MEDS ORDERED: IOPAMIDOL-370 100 ML VIAL IV ONE (12:30)
[2020-12-12] MEDS ORDERED: 0.9%NACL 1000ML 1,000 ML IV SCH (14:00)
[2020-12-12] MEDS ORDERED: DEXTROSE 50%-WATER 50 ML DISP.SYRIN IV PRN (14:00)
[2020-12-12] MEDS ORDERED: INSULIN HUMULIN R 100 UNIT/ML 3ML SQ SCH (16:30)
[2020-12-12] MEDS ORDERED: FURO40TA7 PO (17:05)
== END 2020-12-12 18:35 | disposition home or self-care (01) ==
LOC: DAH 07:41
PROVIDERS: ATTEND Internal Medicine Cardiovascular Disease
DX: I25.10 Atherosclerotic heart disease of native coronary artery without angina pectoris (principal); I08.3 Combined rheumatic disorders of mitral, aortic and tricuspid valves; E11.22 Type 2 diabetes mellitus with diabetic chronic kidney disease; I13.0 Hypertensive heart and chronic kidney disease with heart failure and stage 1 through stage 4 chronic kidney disease, or unspecified chronic kidney disease; N18.4 Chronic kidney disease, stage 4 (severe); I50.33 Acute on chronic diastolic (congestive) heart failure; E11.51 Type 2 diabetes mellitus with diabetic peripheral angiopathy without gangrene; E11.59 Type 2 diabetes mellitus with other circulatory complications; E78.5 Hyperlipidemia, unspecified; I44.7 Left bundle-branch block, unspecified; I48.20 Chronic atrial fibrillation, unspecified; J45.909 Unspecified asthma, uncomplicated; Z95.2 Presence of prosthetic heart valve; Z79.01 Long term (current) use of anticoagulants
CPT/HCPCS: 36415; 71045; 80048; 81003; 82948 ×2; 85025; 85610; 85730; 93005; 93312; 93460; A4215; A4216; A4221; A4222; A4223 ×3; A4606; A4663; C1760; C1894 ×3; J1644; J2250; J3010; J3490 ×2; J7030; Q9967; 93313; 96374; 96375; 99152; 99153; J0583

== ENCOUNTER → 2020-12-17 | Outpatient (CLI) | payer OTHER ==
[~2020-12-17] MED LIST changes: -FURO40TA5 PO; +FURO40TA7 PO; -MONT-39 PO; +MONT10TA32 PO
[2020-12-17 08:38] LABS: CREATININE 2.5 mg/dL (0.5-1.5)
== END | disposition home or self-care (01) ==
LOC: LAB 08:01
PROVIDERS: ATTEND Internal Medicine Cardiovascular Disease
DX: I35.1 Nonrheumatic aortic (valve) insufficiency (principal)
CPT/HCPCS: 36415; 80048